=== PATIENT | male | born 1975 | race Caucasian/White ===

== ENCOUNTER 2017-06-07 17:33 | Emergency (ER) | payer MEDICAID, OTHER ==
[~2017-06-07] VITALS: Ht 170.2 cm; Wt 70.0 kg
[~2017-06-07 17:33] MED LIST: CYCL-36 PO; LORTA10 PO; MS C30TA5 PO; PERC5TAB12 PO; ZOFR4TAB3 SL
[2017-06-07 17:34] VITALS: BP 137/87; PULSE 102; RESP 20; TEMP 98.5; O2SAT 98
--- NOTE | 2017-06-07 19:29 | PD ---
HPI Chief Complaint: Fall Time Seen by Provider: 18:59 Travel History International Travel<30 days: No Contact w/Intl Traveler<30days: No History of Present Illness HPI Patient is a 42 year old male who presents to the ER with c/o of right hip pain. patient reports that he lost his balance and fell a few days ago and hurt his right hip. Reports that his hip has been hurting after his fall. He has been ambulating but reports pain with ambulation. Patient reports that he has been having hip problems for the past 2 years. Reports that he was diagnosed with avascular necrosis on October 26, 2015 at an ER and was told that he needed immediate surgery - reports that he left the hospital as he didn't want surgery. Patient reports that he is ready for surgery now and would like an operation to his right hip. Patient currently is not on any anticoagulants. Denies trauma to head/neck after fall. Patient with no other c/o at this time. PFSH Past Medical History Anemia: Yes High Cholesterol: Yes Diminished Hearing: No Kidney Stones: Yes Medical other: Yes (VASCULAR NECROSIS ) Musculoskeletal: Yes (herniated discs in back) Past Surgical History Other Surgery: Yes (CYST AND BLOOD CLOT REMOVED RIGHT GROIN) Social History Alcohol Use: No (DENIES) Tobacco Use: Yes (1-2 ppd) Substance Use: No (DENIES) Allergies-Medications (Allergen,Severity, Reaction): Coded Allergies: No Known Allergies (Unverified , 06/07/17) Reported Meds & Prescriptions Reported Meds & Active Scripts Active No Active Prescriptions or Reported Medications Review of Systems General / Constitutional: No: Fever Eyes: No: Visual changes HENT: No: Headaches Cardiovascular: No: Chest Pain or Discomfort Respiratory: No: Shortness of Breath Gastrointestinal: No: Abdominal Pain Genitourinary: No: Dysuria Musculoskeletal: Positive: Pain (right hip pain) Skin: No Rash Neurologic: No: Weakness Psychiatric: No: Depression Endocrine: No: Polydipsia Hematologic/Lymphatic: No: Easy Bruising Physical Exam Narrative GENERAL: mild distress SKIN: Focused skin assessment warm/dry. HEAD: Atraumatic. Normocephalic. EYES: No injection or drainage. ENT: No nasal bleeding or discharge. Mucous membranes pink and moist. NECK: Trachea midline. No JVD. CARDIOVASCULAR: Regular rate and rhythm. No murmur appreciated. RESPIRATORY: No accessory muscle use. Clear to auscultation. Breath sounds equal bilaterally. GASTROINTESTINAL: Abdomen soft, non-tender, nondistended. Hepatic and splenic margins not palpable. MUSCULOSKELETAL: No obvious deformities. No clubbing. No cyanosis. No edema. Patient with pain with ROM to right hip, no obvious open fx NEUROLOGICAL: Awake and alert. No obvious cranial nerve deficits. Motor grossly within normal limits. Normal speech. PSYCHIATRIC: Appropriate mood and affect; insight and judgment normal. Data Data Last Documented VS Vital Signs Date Time Temp Pulse Resp B/P (MAP) Pulse Ox O2 Delivery O2 Flow Rate FiO2 06/07/17 17:34 98.5 102 20 137/87 (104) 98 Orders Orders Hip, Uni(Ap&Lat) W Ap Pelvis (06/07/17 ) Mandatory Outpatient Referral (06/07/17 20:53) Crutches (06/07/17 20:55) Oxycodone-Acetamin 5-325 Mg (Percocet (06/07/17 21:00) MDM Medical Decision Making Medical Screen Exam Complete: Yes Emergency Medical Condition: Yes Interpretation(s) Vital Signs Date Time Temp Pulse Resp B/P (MAP) Pulse Ox O2 Delivery O2 Flow Rate FiO2 06/07/17 17:34 98.5 102 20 137/87 (104) 98 Differential Diagnosis Differential include hip fracture, hip strain Narrative Course Patient is a 42-year-old male who presents to emergency room complaints of right -sided hip pain. Patient reports that he suffered a mechanical fall a few days ago and landed his right hip, reports that he has had problems with his hip for the past 2 years and was diagnosed with AVN last year and was told that he needed surgery emergently but left the hospital at that time. Patient reports that he has been dealing with his hip pain and falls for the past 2 years and would like surgery now. Patient with no other complaints at this time. \ Last Impressions Hip and Pelvis X-Ray 06/07/17 0000 Signed Impressions: Service Date/Time: Wednesday, June 07, 2017 19:33 - CONCLUSION: Broad area of flattening/collapse of the femoral head as above and with moderate right hip osteoarthritis. Ang Macias MD X-ray of the hip shows osteochondral flattening/collapse measuring at least 4.9 cm across the right femoral head compatible with chronic AVN changes. Case reviewed with Dr. Gabriel, orthopedic surgeon on-call, there is no emergent to admit patient to the hospital at this time as this is a chronic condition. Patient can follow up as an outpatient for hip replacement. He does not require emergent surgery at this time. This was reviewed with patient in detail. He will call for earliest follow up. Mandatory referral placed to Orthopedic surgery Diagnosis Primary Impression: AVN (avascular necrosis of bone) Additional Impression: Hip pain, right Referrals: William Rios MD Patient Instructions: General Instructions Additional Instructions: Please call orthopedic surgeon first thing in the morning for earliest follow up Please bring the copy of your x-ray report to your doctor's appointment for follow-up Return to emergency room symptoms worsen or progress Return to the emergency room as needed Scripts Tramadol (Tramadol) 50 Mg Tab 50 MG PO Q6H Y for PAIN, #10 TAB 0 Refills Prov: Nazia Carrera DO 06/07/17 Disposition: 01 DISCHARGE HOME Condition: Stable Nazia Carrera DO Jun 07, 2017 19:29
--- NOTE | 2017-06-07 19:49 | RADRPT ---
EXAM DATE/TIME: 06/07/2017 19:33 [facility] COMPARISON: No previous studies available for comparison. INDICATIONS : Pain for over a year. MEDICAL HISTORY : Avascular necrosis. SURGICAL HISTORY : None. ENCOUNTER: Initial ACUITY: >1 year PAIN SCORE: 10/10 LOCATION: Right hip. FINDINGS: An area of osteochondral flattening/collapse measuring at least 4.9 cm across involve the right femor al head compatible with chronic AVN changes. There is moderate severity osteoarthritis with associate d mild irregularity of the acetabular roof, new. Certainly could be some unstable osteochondral fragm ent but I don't see anything displaced. The pelvis is intact.. CONCLUSION: Broad area of flattening/collapse of the femoral head as above and with moderate right hip osteoarthr itis. Ang Macias MD on June 07, 2017 at 19:45 Board Certified Radiologist. This report was verified electronically.
[2017-06-07] MEDS ORDERED: oxyCODONE/ACETAMINOPHEN 5 MG/325 MG TAB PO ONE (21:00)
[2017-06-07] MEDS ORDERED: TRAM50TA PO (21:01)
== END 2017-06-07 21:32 | disposition home or self-care (01) ==
LOC: NEPD 17:33
DX: M87.9 Osteonecrosis, unspecified (principal); F17.200 Nicotine dependence, unspecified, uncomplicated
CPT/HCPCS: 73502; 99283; E0113

== ENCOUNTER 2017-07-01 08:08 | Emergency (ER) | payer OTHER ==
[~2017-07-01] VITALS: Ht 170.2 cm; Wt 75.0 kg
[~2017-07-01 08:08] MED LIST changes: -CYCL-36 PO; -LORTA10 PO; -MS C30TA5 PO; -PERC5TAB12 PO; +TRAM50TA PO; -ZOFR4TAB3 SL
[2017-07-01 08:10] VITALS: BP 144/91; PULSE 127; RESP 16; TEMP 99.2; O2SAT 95
--- NOTE | 2017-07-01 09:19 | PD ---
HPI Chief Complaint: Pain: Acute or Chronic Time Seen by Provider: 08:53 Travel History International Travel<30 days: No Contact w/Intl Traveler<30days: No Traveled to known affect area: No History of Present Illness HPI Patient is a 42-year-old male who returns to emergency room for evaluation of right-sided hip pain. Patient reports that he has history of avascular necrosis to his right hip. Patient reports that his avascular necrosis was diagnosed on October 26, 2015, reports that at that time, it was recommended that he have emergent surgery to his right hip, patient reports that he opted to leave AGAINST MEDICAL ADVICE at that time. Patient was seen again on June 07, 2017 in this emergency room with requests for right-sided hip surgery. Patient was found to have chronic avascular necrosis at that time, this is reviewed with Dr. Rios, orthopedic surgery who recommended outpatient follow-up. A mandatory referral was placed for patient. Patient reports that he did follow-up with orthopedic surgery, reports that he was told that he would eventually need surgery. Reports that he was admitted to [facility] 2 weeks ago to workup a septic joint but reports that his joint was not infected , and he was instead diagnosed with a sinus infection. Patient has not follow- up with orthopedic surgery since then to develop a plan of care for him. Patient denies any fevers or chills, patient with no new traumas or injuries to his right hip. PFSH Past Medical History Hx Anticoagulant Therapy: Yes Anemia: Yes Cardiovascular Problems: Yes High Cholesterol: Yes Diminished Hearing: No Kidney Stones: Yes Musculoskeletal: Yes (herniated discs in back) Tetanus Vaccination: > 5 Years Influenza Vaccination: No Past Surgical History Other Surgery: Yes (CYST AND BLOOD CLOT REMOVED RIGHT GROIN) Social History Alcohol Use: No (DENIES) Tobacco Use: Yes (1-2 ppd) Substance Use: No (DENIES) Allergies-Medications (Allergen,Severity, Reaction): Coded Allergies: No Known Allergies (Unverified , 07/01/17) Reported Meds & Prescriptions Reported Meds & Active Scripts Active No Active Prescriptions or Reported Medications Review of Systems General / Constitutional: No: Fever Eyes: No: Visual changes HENT: No: Headaches Cardiovascular: No: Chest Pain or Discomfort Respiratory: No: Shortness of Breath Gastrointestinal: No: Abdominal Pain Genitourinary: No: Dysuria Musculoskeletal: Positive: Limited ROM (right hip pain), Pain (right hip pain) Skin: No Rash Neurologic: No: Weakness Psychiatric: No: Depression Endocrine: No: Polydipsia Hematologic/Lymphatic: No: Easy Bruising Physical Exam Narrative GENERAL: NAD SKIN: Focused skin assessment warm/dry. HEAD: Atraumatic. Normocephalic. NECK: Trachea midline. No JVD. CARDIOVASCULAR: Regular rate and rhythm. No murmur appreciated. RESPIRATORY: No accessory muscle use. Clear to auscultation. Breath sounds equal bilaterally. GASTROINTESTINAL: Abdomen soft, non-tender, nondistended. Hepatic and splenic margins not palpable. MUSCULOSKELETAL: No obvious deformities. No clubbing. No cyanosis. No edema. Patient with pain with range of motion to his right hip NEUROLOGICAL: Awake and alert. No obvious cranial nerve deficits. Motor grossly within normal limits. Normal speech. PSYCHIATRIC: Appropriate mood and affect; insight and judgment normal. Data Data Last Documented VS Vital Signs Date Time Temp Pulse Resp B/P (MAP) Pulse Ox O2 Delivery O2 Flow Rate FiO2 07/01/17 09:08 98 17 07/01/17 08:10 99.2 144/91 (108) 95 Orders Orders Hip, Uni(Ap&Lat) Wo Ap Pelvis (07/01/17 ) Oxycodone-Acetamin 5-325 Mg (Percocet (07/01/17 09:30) MDM Medical Decision Making Medical Screen Exam Complete: Yes Emergency Medical Condition: Yes Medical Record Reviewed: Yes Interpretation(s) Vital Signs Date Time Temp Pulse Resp B/P (MAP) Pulse Ox O2 Delivery O2 Flow Rate FiO2 07/01/17 09:08 98 17 07/01/17 08:10 99.2 127 16 144/91 (108) 95 Differential Diagnosis Differential includes avascular necrosis which is chronic in nature, chronic hip pain Narrative Course 42-year-old male presents to emergency room with complaints of acute on chronic right-sided hip pain. Patient does have history of avascular necrosis which was diagnosed about 2 years ago, reports that he did follow-up with an orthopedic surgeon as outpatient for this hip pain, there is no plan for intervention for his hip. Patient denies any new injuries or trauma to his hip , presents to emergency room with complaints of chronic pain. He does admit to being seen at an outside hospital 2 weeks ago - reports that he had a septic hip workup which was negative. Patient here for treatment of his chronic hip pain X-ray of the right hip shows avascular necrosis with complete collapse of the femoral head. I discussed with patient in detail that he must follow-up with orthopedic surgeon for surgical repair of his femoral head. Copies of patient' s xray report was given to him at discharge. Crutches ordered for patient Diagnosis Primary Impression: Avascular necrosis of femoral head Qualified Codes: M87.051 - Idiopathic aseptic necrosis of right femur Patient Instructions: Narcotic given in the ED, General Instructions Additional Instructions: Please stop with your orthopedic surgeon as soon as possible, bring a copy of your x-ray report to doctor's office for follow-up Med/Other Pt SpecificInfo: Prescription(s) given Scripts Tramadol (Tramadol) 50 Mg Tab 50 MG PO Q6H Y for PAIN, #12 TAB 0 Refills Prov: Nazia Carrera DO 07/01/17 Disposition: 01 DISCHARGE HOME Condition: Stable Nazia Carrera DO Jul 01, 2017 09:19
[2017-07-01] MEDS ORDERED: oxyCODONE/ACETAMINOPHEN 5 MG/325 MG TAB PO ONE (09:30)
--- NOTE | 2017-07-01 09:32 | RADRPT ---
EXAM DATE/TIME: 07/01/2017 09:01 [facility] COMPARISON: HIP RIGHT (AP & LAT), February 28, 2015, 15:09. INDICATIONS : Right hip pain, 4-5 days. MEDICAL HISTORY : Avascular Necrosis SURGICAL HISTORY : None. ENCOUNTER: Initial ACUITY: 4 - 6 days PAIN SCORE: 10/10 LOCATION: Right hip FINDINGS: There is a vascular necrosis of the femoral head with complete collapse. Degenerative changes are se en at the acetabulum. CONCLUSION: Avascular necrosis, complete collapse of the femoral head. Pasha Adrian MD FACR on July 01, 2017 at 9:18 Board Certified Radiologist. This report was verified electronically.
[2017-07-01 10:39] VITALS: RESP 17
[2017-07-01] MEDS ORDERED: TRAM50TA PO (11:15)
[2017-07-01 15:07] VITALS: BP 122/77; TEMP 97.8
== END 2017-07-01 15:11 | disposition home or self-care (01) ==
LOC: NEPC 08:08
DX: M87.051 Idiopathic aseptic necrosis of right femur (principal); M25.551 Pain in right hip; G89.29 Other chronic pain; E78.00 Pure hypercholesterolemia, unspecified; F17.200 Nicotine dependence, unspecified, uncomplicated; Z79.01 Long term (current) use of anticoagulants; Z86.2 Personal history of diseases of the blood and blood-forming organs and certain disorders involving the immune mechanism; Z86.79 Personal history of other diseases of the circulatory system; Z87.442 Personal history of urinary calculi; Z87.39 Personal history of other diseases of the musculoskeletal system and connective tissue
CPT/HCPCS: 73502; 99283; E0113